=== PATIENT | female | born 1945 | race Caucasian/White ===

== ENCOUNTER 2018-12-04 05:26 | Day surgery (SDC) | payer MEDICARE, OTHER ==
[~2018-12-04] VITALS: Ht 149.9 cm; Wt 57.2 kg
[~2018-12-04 05:26] MED LIST: ACET-1600 PO; BUDE10.22 INH; CHOL500015 PO; DIAZ5TAB4 PO; DICY10CA3 PO; DIPH1TAB6 PO; DOXE100C PO; ESOM40CA PO; HYDR25TA11 PO; LIDO700A20 TD; MAGN400T7 PO; MULT-516 PO; ONDA4TAB13 SL; OXYC15TA PO; PREG100C PO; [UNRECOGNIZED DRUG - CODE] PO; [UNRECOGNIZED DRUG - OTHER] PO; [UNRECOGNIZED DRUG - OTHER] RIGHTEYE; [UNRECOGNIZED DRUG - OTHER] RIGHTEYE
[2018-12-04 06:24] VITALS: BP 170/82
[2018-12-04] MEDS ORDERED: LACTATED RINGERS 1,000 ML IV SCH (06:34)
[2018-12-04] MEDS ORDERED: CHLORHEXIDINE 15 ML UDC ONE (07:13)
[2018-12-04] MEDS ORDERED: PROPOFOL 10 MG/ML, 20ML ONE (07:27)
[2018-12-04] MEDS ORDERED: ACETAMINOPHEN 325 MG TABLET PO PRN (08:00)
[2018-12-04] MEDS ORDERED: OXYcodone 5 MG/5 ML ORAL.SOL UDC PO PRN (08:00)
[2018-12-04] MEDS ORDERED: FENTANYL PF 100 MCG/2ML IV PRN (08:00)
[2018-12-04] MEDS ORDERED: ONDANSETRON 2MG/ML, 2ML IV PRN (08:00)
[2018-12-04] MEDS ORDERED: ONDANSETRON ODT 8 MG PO PRN (08:00)
== END 2018-12-04 09:15 | disposition home or self-care (01) ==
LOC: OUT 05:26
PROVIDERS: ATTEND Internal Medicine Gastroenterology
DX: K29.50 Unspecified chronic gastritis without bleeding (principal); K29.80 Duodenitis without bleeding; K80.50 Calculus of bile duct without cholangitis or cholecystitis without obstruction; K25.9 Gastric ulcer, unspecified as acute or chronic, without hemorrhage or perforation; F41.9 Anxiety disorder, unspecified; F32.0 Major depressive disorder, single episode, mild; K21.9 Gastro-esophageal reflux disease without esophagitis; Z98.890 Other specified postprocedural states; Z90.710 Acquired absence of both cervix and uterus; Z98.49 Cataract extraction status, unspecified eye; Z90.49 Acquired absence of other specified parts of digestive tract; Z79.82 Long term (current) use of aspirin; Z87.891 Personal history of nicotine dependence
CPT/HCPCS: 43242; 88305; 93005; J2704; J7120